=== PATIENT | female | born 1950 | race Caucasian/White ===

== ENCOUNTER 2018-06-08 07:10 | Inpatient (IN) ==
[2018-06-08] MEDS ORDERED: HYDROmorphone 2 MG/1 ML VIAL IV STA (08:29)
[2018-06-08] MEDS ORDERED: ONDANSETRON 4 MG/2 ML VIAL IV STA (08:29)
[2018-06-08] MEDS ORDERED: ONDANSETRON 4 MG/2 ML VIAL ONE (08:32)
[2018-06-08] MEDS ORDERED: HYDROmorphone 2 MG/1 ML VIAL ONE (08:32)
[2018-06-08] MEDS ORDERED: MAGNESIUM HYDROXIDE SUSP 30 ML UDCUP PO PRN (08:39)
[2018-06-08 09:00] LABS: Basophils % 0.4 % (0.0-0.8); Eosinophils % 0.2 % (0.00-10.9); Hematocrit 37.5 VOL% (35.7-47.0); Hemoglobin 12.7 GM/DL (12.0-16.0); Immature Granulocytes % 0.5 %; Immature Granulocytes Absolute 0.05 #; Lymphocytes # 1.1 10*3/uL (1.4-4.0); Lymphocytes % 10.4 % (21.3-54.2); Mean Corpuscular HGB Conc 33.9 GM/DL (32-36); Mean Corpuscular Hemoglobin 30 PG (27-34); Mean Corpuscular Volume 89.5 FL (87-102); Mean Platelet Volume 9.4 FL (9.6-12.0); Monocytes # 0.5 10*3/uL (0.11-0.8); Neutrophils % 83.5 % (38.7-73.9); Platelet Count 343 T/CUMM (130-400); Red Blood Count 4.19 MC/CUMM (3.8-5.5); Red Cell Distribution Width 19.3 % (9.3-17.3); White Blood Count 10.7 T/CUMM (4-12)
[2018-06-08 09:19] LABS: Calcium 9.1 MG/DL (8.5-10.1)
[2018-06-08] MEDS: FLUoxetine 20 MG CAPSULE PO SCH (11:09)
[2018-06-08] MEDS: MORPHINE 4 MG/1 ML VIAL IV PRN ×5 (11:09→22:47)
[2018-06-08] MEDS: POTASSIUM CHLORIDE RIDER 10 MEQ in PREMIX 1 EACH IV PRN ×3 (13:00→22:50)
[2018-06-08] MEDS: DEXTROSE 5% NACL 0.45% 1,000 ML IV SCH ×2 (13:00→18:37)
[2018-06-08] MEDS ORDERED: ceFAZolin 1,000 MG in SYRINGE 1 EACH IV ONE (13:29)
[2018-06-08 14:27] LABS: PT Patient Result 10.2 SECS; Partial Thromboplastin Time 27.1 SECS (0-40)
[2018-06-08] MEDS ORDERED: ALBUTEROL/IPRATROPIUM 3 ML NEB RESP TX PRN (14:54)
[2018-06-08] MEDS ORDERED: ONDANSETRON 4 MG/2 ML VIAL IV PRN (17:48)
[2018-06-08] MEDS: METHOCARBAMOL 500 MG TABLET PO SCH (21:50)
[2018-06-09] MEDS: POTASSIUM CHLORIDE RIDER 10 MEQ in PREMIX 1 EACH IV PRN ×3 (00:54→02:56)
[2018-06-09] MEDS ORDERED: diphenhydrAMINE 50 MG/1 ML VIAL IV ONE (02:08)
[2018-06-09] MEDS: MORPHINE 4 MG/1 ML VIAL IV PRN ×3 (02:26→08:12)
[2018-06-09] MEDS: DEXTROSE 5% NACL 0.45% 1,000 ML IV SCH ×2 (04:15→17:11)
[2018-06-09 05:51] LABS: Basophils # 0.1 10*3/uL (0.0-0.2); Basophils % 0.7 % (0.0-0.8); Eosinophils # 0.2 10*3/uL (0.0-0.87); Eosinophils % 1.9 % (0.00-10.9); Hematocrit 37.3 VOL% (35.7-47.0); Hemoglobin 11.9 GM/DL (12.0-16.0); Immature Granulocytes % 0.6 %; Immature Granulocytes Absolute 0.05 #; Lymphocytes # 1.4 10*3/uL (1.4-4.0); Lymphocytes % 15.4 % (21.3-54.2); Mean Corpuscular HGB Conc 31.9 GM/DL (32-36); Mean Corpuscular Hemoglobin 30 PG (27-34); Mean Corpuscular Volume 94.2 FL (87-102); Mean Platelet Volume 9.9 FL (9.6-12.0); Monocytes # 0.6 10*3/uL (0.11-0.8); Monocytes % 6.6 % (1.7-12.7); Neutrophils # 6.7 10*3/uL (1.4-7.4); Neutrophils % 74.8 % (38.7-73.9); Platelet Count 310 T/CUMM (130-400); Red Blood Count 3.96 MC/CUMM (3.8-5.5); Red Cell Distribution Width 19.5 % (9.3-17.3)
[2018-06-09 06:13] LABS: Calcium 8.7 MG/DL (8.5-10.1); Potassium 3.8 MMOL/L (3.5-5.1)
[2018-06-09] MEDS ORDERED: ceFAZolin 1,000 MG in SYRINGE 1 EACH IV ONE (08:30)
[2018-06-09] MEDS: ASPIRIN EC 81 MG TABLET PO SCH (08:31)
[2018-06-09] MEDS: hydroCHLOROthiazide 25 MG TABLET PO SCH (08:31)
[2018-06-09] MEDS: FLUoxetine 20 MG CAPSULE PO SCH (08:32)
[2018-06-09] MEDS: METHOCARBAMOL 500 MG TABLET PO SCH ×2 (08:32→21:33)
[2018-06-09] MEDS: PANTOPRAZOLE 40 MG TABLET PO SCH (08:32)
[2018-06-09] MEDS: POTASSIUM CHLORIDE 20 MEQ TABLET PO SCH (08:32)
[2018-06-09] MEDS: PROPRANOLOL LA 60 MG CAPSULE PO SCH (11:05)
[2018-06-09] MEDS: amLODIPine 10 MG TABLET PO SCH (11:05)
[2018-06-09] MEDS ORDERED: BUPIVACAINE 0.5% 50 ML VIAL ONE (11:18)
[2018-06-09] MEDS ORDERED: BACITRACIN OINT 0.9 GM PACK TOP ONE (11:54)
[2018-06-09] MEDS ORDERED: BUPIVACAINE SPINAL 0.75% 2 ML AMP SPINAL ONE (12:06)
[2018-06-09] MEDS ORDERED: diphenhydrAMINE CAP 25 MG CAPSULE PO PRN (13:18)
[2018-06-09] MEDS ORDERED: MORPHINE 4 MG/1 ML VIAL IV PRN ×2 (13:18)
[2018-06-09] MEDS ORDERED: oxyCODONE/ACETAMINOPHEN 5-325 MG TABLET PO PRN (13:18)
[2018-06-09] MEDS ORDERED: ZALEPLON 5 MG CAPSULE PO PRN (13:18)
[2018-06-09] MEDS ORDERED: MIDAZOLAM 2 MG/2 ML VIAL ONE ×2 (13:50)
[2018-06-09] MEDS ORDERED: ePHEDrine 50 MG/ML AMP ONE (13:50)
[2018-06-09] MEDS ORDERED: SODIUM CHLORIDE 0.9% 100 ML IV ONE (13:50)
[2018-06-09] MEDS ORDERED: PROPOFOL 200 MG/20 ML VIAL IV ONE (13:50)
[2018-06-09] MEDS ORDERED: fentaNYL 100 MCG/2 ML VIAL ONE (13:50)
[2018-06-09] MEDS: KETOROLAC 30 MG/1 ML VIAL IV SCH ×2 (15:48→21:36)
[2018-06-09] MEDS: ceFAZolin 1,000 MG in SYRINGE 1 EACH IV SCH (17:12)
[2018-06-09] MEDS: oxyCODONE/ACETAMINOPHEN 5-325 MG TABLET PO PRN (17:59)
[2018-06-09 18:25] LABS: Apearance,Urine Slightly Hazy (Clear); Bacteria,Urine Few /HPF (Few); Bilirubin,Urine Negative (Negative); Blood, Urine Negative (Negative); Glucose,Urine (UA) Negative (Negative); Ketones,Urine Negative (Negative); Mucus,Urine Occasional /LPF (Occasional); Nitrite,Urine Negative (Negative); Protein,Urine Negative; RBC,Urine <1 /HPF (0-4); Squamous Epithelial Cell,Urine Occasional /HPF (0-10); Urine Color Straw (Yellow); Urine Specific Gravity 1.004 (1.001-1.035); Urine Urobilinogen < 2.0 EU/DL (0.2-1.0); WBC,Urine 2 /HPF (0-6)
[2018-06-09] MEDS: DOCUSATE SODIUM 100 MG CAPSULE PO SCH (21:33)
[2018-06-10] MEDS: ceFAZolin 1,000 MG in SYRINGE 1 EACH IV SCH (02:06)
[2018-06-10] MEDS: KETOROLAC 30 MG/1 ML VIAL IV SCH ×2 (03:35→10:09)
[2018-06-10 04:59] LABS: Basophils % 0.3 % (0.0-0.8); Eosinophils # 0.3 10*3/uL (0.0-0.87); Eosinophils % 2.4 % (0.00-10.9); Hematocrit 32.6 VOL% (35.7-47.0); Hemoglobin 10.4 GM/DL (12.0-16.0); Immature Granulocytes % 0.4 %; Immature Granulocytes Absolute 0.05 #; Lymphocytes # 1.6 10*3/uL (1.4-4.0); Lymphocytes % 13.1 % (21.3-54.2); Mean Corpuscular HGB Conc 31.9 GM/DL (32-36); Mean Corpuscular Hemoglobin 30 PG (27-34); Mean Corpuscular Volume 94.5 FL (87-102); Mean Platelet Volume 10.3 FL (9.6-12.0); Monocytes # 0.9 10*3/uL (0.11-0.8); Monocytes % 7.1 % (1.7-12.7); Neutrophils # 9.5 10*3/uL (1.4-7.4); Neutrophils % 76.7 % (38.7-73.9); Platelet Count 245 T/CUMM (130-400); Red Blood Count 3.45 MC/CUMM (3.8-5.5); Red Cell Distribution Width 18.6 % (9.3-17.3); White Blood Count 12.3 T/CUMM (4-12)
[2018-06-10 05:18] LABS: Calcium 8.5 MG/DL (8.5-10.1); Osmolality,Calculated 275.7 MOS/KG (273-304); Potassium 3.1 MMOL/L (3.5-5.1)
[2018-06-10] MEDS: DOCUSATE SODIUM 100 MG CAPSULE PO SCH ×2 (10:06→21:17)
[2018-06-10] MEDS: FLUoxetine 20 MG CAPSULE PO SCH (10:06)
[2018-06-10] MEDS: ASPIRIN EC 81 MG TABLET PO SCH (10:07)
[2018-06-10] MEDS: PROPRANOLOL LA 60 MG CAPSULE PO SCH (10:07)
[2018-06-10] MEDS: PANTOPRAZOLE 40 MG TABLET PO SCH (10:07)
[2018-06-10] MEDS: amLODIPine 10 MG TABLET PO SCH (10:08)
[2018-06-10] MEDS: POTASSIUM CHLORIDE 20 MEQ TABLET PO SCH (10:08)
[2018-06-10] MEDS: FONDAPARINUX 2.5 MG/0.5 ML SYRINGE SUBCUT SCH (10:11)
[2018-06-10] MEDS: hydroCHLOROthiazide 25 MG TABLET PO SCH (10:15)
[2018-06-10] MEDS: oxyCODONE/ACETAMINOPHEN 5-325 MG TABLET PO PRN (17:08)
[2018-06-10] MEDS: POTASSIUM CHLORIDE RIDER 10 MEQ in PREMIX 1 EACH IV PRN ×2 (17:14→21:17)
[2018-06-10] MEDS: METHOCARBAMOL 500 MG TABLET PO SCH ×2 (19:19→21:18)
[2018-06-11] MEDS: POTASSIUM CHLORIDE RIDER 10 MEQ in PREMIX 1 EACH IV PRN (01:49)
[2018-06-11 05:50] LABS: Basophils % 0.4 % (0.0-0.8); Eosinophils # 0.3 10*3/uL (0.0-0.87); Hematocrit 32.8 VOL% (35.7-47.0); Hemoglobin 10.9 GM/DL (12.0-16.0); Immature Granulocytes % 0.6 %; Immature Granulocytes Absolute 0.05 #; Lymphocytes % 11.7 % (21.3-54.2); Mean Corpuscular HGB Conc 33.2 GM/DL (32-36); Mean Corpuscular Hemoglobin 31 PG (27-34); Mean Corpuscular Volume 94.5 FL (87-102); Mean Platelet Volume 10.3 FL (9.6-12.0); Monocytes # 0.6 10*3/uL (0.11-0.8); Monocytes % 7.4 % (1.7-12.7); Neutrophils # 6.4 10*3/uL (1.4-7.4); Neutrophils % 76.9 % (38.7-73.9); Platelet Count 262 T/CUMM (130-400); Red Blood Count 3.47 MC/CUMM (3.8-5.5); Red Cell Distribution Width 18.4 % (9.3-17.3); White Blood Count 8.3 T/CUMM (4-12)
[2018-06-11] MEDS: FONDAPARINUX 2.5 MG/0.5 ML SYRINGE SUBCUT SCH (07:15)
[2018-06-11] MEDS: POTASSIUM CHLORIDE 20 MEQ TABLET PO SCH (10:01)
[2018-06-11] MEDS: PROPRANOLOL LA 60 MG CAPSULE PO SCH (10:02)
[2018-06-11] MEDS: METHOCARBAMOL 500 MG TABLET PO SCH ×2 (10:03→21:10)
[2018-06-11] MEDS: FLUoxetine 20 MG CAPSULE PO SCH (10:03)
[2018-06-11] MEDS: PANTOPRAZOLE 40 MG TABLET PO SCH (10:04)
[2018-06-11] MEDS: ASPIRIN EC 81 MG TABLET PO SCH (10:04)
[2018-06-11] MEDS: hydroCHLOROthiazide 25 MG TABLET PO SCH (10:04)
[2018-06-11] MEDS: amLODIPine 10 MG TABLET PO SCH (10:05)
[2018-06-11] MEDS: DOCUSATE SODIUM 100 MG CAPSULE PO SCH ×2 (10:05→21:10)
[2018-06-11] MEDS: oxyCODONE/ACETAMINOPHEN 5-325 MG TABLET PO PRN ×2 (11:08→18:18)
[2018-06-12 05:45] LABS: Basophils # 0.1 10*3/uL (0.0-0.2); Basophils % 0.8 % (0.0-0.8); Eosinophils # 0.3 10*3/uL (0.0-0.87); Eosinophils % 4.5 % (0.00-10.9); Hematocrit 33.5 VOL% (35.7-47.0); Hemoglobin 10.9 GM/DL (12.0-16.0); Immature Granulocytes % 0.3 %; Immature Granulocytes Absolute 0.02 #; Lymphocytes # 1.2 10*3/uL (1.4-4.0); Lymphocytes % 19.7 % (21.3-54.2); Mean Corpuscular HGB Conc 32.5 GM/DL (32-36); Mean Corpuscular Hemoglobin 31 PG (27-34); Mean Corpuscular Volume 95.7 FL (87-102); Mean Platelet Volume 10.3 FL (9.6-12.0); Monocytes # 0.5 10*3/uL (0.11-0.8); Monocytes % 8.1 % (1.7-12.7); Neutrophils # 4.2 10*3/uL (1.4-7.4); Neutrophils % 66.6 % (38.7-73.9); Platelet Count 298 T/CUMM (130-400); Red Cell Distribution Width 18.5 % (9.3-17.3); White Blood Count 6.3 T/CUMM (4-12)
[2018-06-12 06:14] LABS: Calcium 8.8 MG/DL (8.5-10.1); Osmolality,Calculated 282.1 MOS/KG (273-304); Potassium 3.6 MMOL/L (3.5-5.1)
[2018-06-12] MEDS: FONDAPARINUX 2.5 MG/0.5 ML SYRINGE SUBCUT SCH (06:27)
[2018-06-12] MEDS: amLODIPine 10 MG TABLET PO SCH (09:05)
[2018-06-12] MEDS: PROPRANOLOL LA 60 MG CAPSULE PO SCH (09:05)
[2018-06-12] MEDS: hydroCHLOROthiazide 25 MG TABLET PO SCH (09:05)
[2018-06-12] MEDS: PANTOPRAZOLE 40 MG TABLET PO SCH (09:06)
[2018-06-12] MEDS: DOCUSATE SODIUM 100 MG CAPSULE PO SCH (09:06)
[2018-06-12] MEDS: FLUoxetine 20 MG CAPSULE PO SCH (09:06)
[2018-06-12] MEDS: ASPIRIN EC 81 MG TABLET PO SCH (09:07)
[2018-06-12] MEDS: POTASSIUM CHLORIDE 20 MEQ TABLET PO SCH (09:07)
[2018-06-12] MEDS: oxyCODONE/ACETAMINOPHEN 5-325 MG TABLET PO PRN (09:09)
[2018-06-12] MEDS: METHOCARBAMOL 500 MG TABLET PO SCH (09:13)
[2018-06-12 11:30] VITALS: BP 134/81
== END 2018-06-12 11:43 | DRG 481 ==
LOC: EDUNIT# → EDBD → N.ED 07:10 → N.EDINP 08:38 → N.3E 10:10
PROVIDERS: ADMIT Orthopaedic Surgery; ATTEND Orthopaedic Surgery